=== PATIENT | female | born 1950 | race Caucasian/White ===

== ENCOUNTER → 2023-12-31 11:01 | Outpatient (REF) | payer MEDICARE, OTHER, SELFPAY | LOC: HWWDC 11:01 | PROVIDERS: ATTENDING PHYSICIAN Family Medicine; FAMILY PHYSICIAN Family Medicine | DX: Z12.31 Encounter for screening mammogram for malignant neoplasm of breast (principal) | CPT/HCPCS: 77063; 77067 ==

== ENCOUNTER 2024-02-19 06:23 | Day surgery (SDC) | payer MEDICARE, OTHER, SELFPAY | END 2024-02-19 14:17 | disposition home or self-care (01) | LOC: GI 06:23 | PROVIDERS: ATTENDING PHYSICIAN Internal Medicine Gastroenterology | DX: Z12.11 Encounter for screening for malignant neoplasm of colon (principal); K63.5 Polyp of colon; K56.699 Other intestinal obstruction unspecified as to partial versus complete obstruction; K57.30 Diverticulosis of large intestine without perforation or abscess without bleeding; K64.8 Other hemorrhoids | CPT/HCPCS: 45380; 88305 ==

== ENCOUNTER → 2024-05-10 09:44 | Outpatient (REF) | payer MEDICARE, OTHER, SELFPAY | LOC: HWRAD 09:44 | PROVIDERS: ATTENDING PHYSICIAN Internal Medicine Gastroenterology; FAMILY PHYSICIAN Family Medicine | DX: Q43.8 Other specified congenital malformations of intestine (principal) | CPT/HCPCS: 74261 ==

== ENCOUNTER → 2024-05-24 10:25 | Outpatient (REF) | payer MEDICARE, OTHER, SELFPAY ==
[2024-05-24 12:00] LABS: HDL Cholesterol 80 mg/dl; LDL Cholesterol, Calculated 73 mg/dl; Total Cholesterol 195 mg/dl (50-199); Triglyceride 212 mg/dl (10-149); Very Low Density Lipoprotein 42 mg/dl (0-30)
== END ==
LOC: HWLAB 10:25
PROVIDERS: ATTENDING PHYSICIAN Internal Medicine Interventional Cardiology; FAMILY PHYSICIAN Family Medicine
DX: R93.1 Abnormal findings on diagnostic imaging of heart and coronary circulation (principal); E78.5 Hyperlipidemia, unspecified
CPT/HCPCS: 36415; 80061